=== PATIENT | female | born 1940 | race Caucasian/White ===

== ENCOUNTER 2021-06-08 11:45 | Inpatient (IN) | payer MEDICARE ==
[~2021-06-08] VITALS: Ht 157.5 cm; Wt 88.5 kg
[2021-06-08] MEDS ORDERED: ONDANSETRON HCL INJ 2MG/ML 2ML 2 MG/ML VIAL IV STA (12:11)
[2021-06-08] MEDS ORDERED: MORPHINE SULFATE INJ 4 MG/ML INJ 1ML IV ONE (12:15)
[2021-06-08] MEDS ORDERED: ONDANSETRON HCL INJ 2MG/ML 2ML 2 MG/ML VIAL ONE (12:26)
[2021-06-08] MEDS ORDERED: MORPHINE SULFATE INJ 4 MG/ML INJ 1ML ONE (12:27)
[2021-06-08] MEDS ORDERED: FAMOTIDINE20 MG PO (12:44)
[2021-06-08] MEDS ORDERED: LEVOTHYROXINE112 MCG PO (12:44)
[2021-06-08] MEDS ORDERED: ONDANSETRON ODT4 MG PO (12:44)
[2021-06-08] MEDS ORDERED: LISINOPRIL-HCT1 EACH (12:44)
[2021-06-08] MEDS ORDERED: METOPROLOL SUCC50 MG PO (12:44)
[2021-06-08] MEDS ORDERED: PROMETHAZINE 12.5MG/ NACL 0.9% 12.5 MG/50 ML BAG IV ONE (12:45)
[2021-06-08] MEDS ORDERED: SODIUM CHLORIDE 0.9% 1000ML 1,000 ML IV STA (12:48)
[2021-06-08] MEDS ORDERED: SODIUM CHLORIDE 0.9% 1000ML 1,000 ML ONE (12:59)
[2021-06-08] MEDS ORDERED: SODIUM CHLORIDE 0.9% 50ML 50 ML ONE (12:59)
[2021-06-08] MEDS ORDERED: PROMETHAZINE HCL (IM) 25 MG/ML VIAL IM ONE (12:59)
[2021-06-08] MEDS: SODIUM CHLORIDE 0.9% 1000ML 1,000 ML IV SCH ×2 (13:45→23:31)
[2021-06-08] MEDS ORDERED: ONDANSETRON HCL INJ 2MG/ML 2ML 2 MG/ML VIAL IV PRN (13:45)
[2021-06-08] MEDS ORDERED: FAMOTIDINE 20 MG/2 ML VIAL IV SCH (18:30)
[2021-06-08 18:35] VITALS: BP 139/63
[2021-06-08] MEDS ORDERED: LEVOFLOXACIN 500MG/D5W 100ML 100 ML IV ONE ×2 (18:45→21:00)
[2021-06-08 21:22] VITALS: BP 127/64
[2021-06-08] MEDS: METRONIDAZOLE 500MG/NS 100ML 100 ML IV SCH (23:19)
[2021-06-08] MEDS: FAMOTIDINE 20 MG/2 ML VIAL IV SCH (23:19)
[2021-06-09] VITALS (8 sets, daily range): BP systolic 103–132; BP diastolic 58–67
[2021-06-09] MEDS: SODIUM CHLORIDE 0.9% IRRIG 3,000 ML BAG IR SCH ×8 (03:30→22:00)
[2021-06-09] MEDS: METRONIDAZOLE 500MG/NS 100ML 100 ML IV SCH ×3 (04:58→20:40)
[2021-06-09] MEDS: SODIUM CHLORIDE 0.9% 1000ML 1,000 ML IV SCH ×2 (05:59→08:20)
[2021-06-09 06:13] LABS: BASOPHILS % 0.1 % (0.0-1.0); EOSINOPHILS % 0.1 % (0.0-6.0); HEMATOCRIT 37.4 % (34.2-44.1); HEMOGLOBIN 12.1 g/dL (12.0-16.0); LYMPHOCYTES # (AUTO) 1.2 (1.0-3.2); MEAN CORPUSCULAR HEMOGLOBIN 27.8 pg (28-32); MEAN CORPUSCULAR HGB CONC 32.4 g/dL (31-35); MONOCYTES % 11.8 % (4.4-11.3); NEUTROPHILS # (AUTO) 6.2 (2.1-6.9); NEUTROPHILS % 73.5 % (38.7-80.0); PLATELET COUNT 285 x10e3/uL (140-360); RED BLOOD COUNT 4.35 x10e6/uL (3.6-5.1); RED CELL DISTRIBUTION WIDTH 13.6 % (11.7-14.4)
[2021-06-09 06:51] LABS: INR 1.19; PROTHROMBIN TIME 15.4 seconds (11.9-14.5)
[2021-06-09 06:52] LABS: PARTIAL THROMBOPLASTIN TIME 35.5 seconds (23.8-35.5)
[2021-06-09 06:54] LABS: ALBUMIN 3.7 g/dL (3.5-5.0); ANION GAP 14.9 mmol/L (8-16); BILIRUBIN,DIRECT 0.3 mg/dL (0.0-0.5); CALCIUM 9.8 mg/dL (8.4-10.2); CREATININE, SERUM 1.38 mg/dL (0.57-1.11); MAGNESIUM 2.3 MG/DL (1.3-2.1)
[2021-06-09 07:35] LABS: POTASSIUM 2.9 mmol/L (3.5-5.1)
[2021-06-09] MEDS ORDERED: POTASSIUM CHLORIDE 20MEQ/100ML 300 ML IV ONE (08:15)
[2021-06-09] MEDS: FAMOTIDINE 20 MG/2 ML VIAL IV SCH ×2 (08:19→20:52)
[2021-06-09] MEDS ORDERED: MORPHINE SULFATE INJ 2 MG/ML SYR IV PRN (11:15)
[2021-06-09] MEDS ORDERED: LACTATED RINGER'S 1,000 ML INJ SCH (12:00)
[2021-06-09] MEDS ORDERED: ROCURONIUM BROMIDE 10 MG/ML 5ML VIAL IV ONE (12:39)
[2021-06-09] MEDS ORDERED: NEOSTIGMINE 1 MG/ML 10ML VIAL ONE (12:39)
[2021-06-09] MEDS ORDERED: SEVOFLURANE INHAL SOLN 250 ML PEN BTL ONE (12:39)
[2021-06-09] MEDS ORDERED: DEXAMETHASONE SOD PHOS INJ 4 MG/ML SDV ONE (12:39)
[2021-06-09] MEDS ORDERED: ETOMIDATE 2 MG/ML 10 ML INJ IV ONE (12:39)
[2021-06-09] MEDS ORDERED: ONDANSETRON HCL INJ 2MG/ML 2ML 2 MG/ML VIAL ONE ×2 (12:39→17:37)
[2021-06-09] MEDS ORDERED: ATROPINE SULFATE 1 MG/ML VIAL ONE (12:39)
[2021-06-09] MEDS ORDERED: SUCCINYLCHOLINE CHLORIDE 20 MG/ML 10ML VIAL ONE (12:39)
[2021-06-09] MEDS ORDERED: POVIDONE IODINE 0.05% 0.05 % ML PO ONE (12:39)
[2021-06-09] MEDS: LACTATED RINGER'S 1,000 ML INJ SCH (16:00)
[2021-06-09] MEDS ORDERED: BUPIVACAINE HCL 0.5% INJ 30 ML VIAL INJ ONE (16:51)
[2021-06-09] MEDS ORDERED: FENTANYL CITRATE/PF 100MCG/2 ML INJ ONE (17:37)
[2021-06-09] MEDS ORDERED: LEVOFLOXACIN 500MG/D5W 100ML 100 ML IV SCH (18:00)
[2021-06-09] MEDS ORDERED: MORPHINE SULFATE INJ 4 MG/ML INJ 1ML IV PRN (20:15)
[2021-06-09] MEDS: LEVOFLOXACIN 500MG/D5W 100ML 100 ML IV SCH (21:40)
[2021-06-10] VITALS (8 sets, daily range): BP systolic 105–127; BP diastolic 57–66
[2021-06-10] MEDS: SODIUM CHLORIDE 0.9% IRRIG 3,000 ML BAG IR SCH ×2 (02:03→05:54)
[2021-06-10] MEDS: METRONIDAZOLE 500MG/NS 100ML 100 ML IV SCH ×3 (04:11→20:00)
[2021-06-10 06:44] LABS: BASOPHILS % 0.1 % (0.0-1.0); HEMATOCRIT 41.5 % (34.2-44.1); HEMOGLOBIN 13.1 g/dL (12.0-16.0); LYMPHOCYTES # (AUTO) 0.9 (1.0-3.2); LYMPHOCYTES % 6.4 % (18.0-39.1); MEAN CORPUSCULAR HEMOGLOBIN 27.5 pg (28-32); MEAN CORPUSCULAR HGB CONC 31.6 g/dL (31-35); MONOCYTES # (AUTO) 1.3 (0.2-0.8); MONOCYTES % 9.9 % (4.4-11.3); NEUTROPHILS # (AUTO) 11.2 (2.1-6.9); NEUTROPHILS % 82.9 % (38.7-80.0); PLATELET COUNT 333 x10e3/uL (140-360); RED BLOOD COUNT 4.77 x10e6/uL (3.6-5.1); RED CELL DISTRIBUTION WIDTH 13.5 % (11.7-14.4)
[2021-06-10 07:00] LABS: ANION GAP 13.5 mmol/L (8-16); CALCIUM 9.1 mg/dL (8.4-10.2); CREATININE, SERUM 1.12 mg/dL (0.57-1.11); MAGNESIUM 2.1 MG/DL (1.3-2.1); POTASSIUM 3.5 mmol/L (3.5-5.1)
[2021-06-10] MEDS: FAMOTIDINE 20 MG/2 ML VIAL IV SCH ×2 (09:29→21:00)
[2021-06-10] MEDS ORDERED: POTASSIUM CHLORIDE 20MEQ/100ML 100 ML IV ONE (09:30)
[2021-06-10] MEDS: LACTATED RINGER'S 1,000 ML INJ SCH ×4 (09:38→22:26)
[2021-06-10] MEDS: LEVOFLOXACIN 500MG/D5W 100ML 100 ML IV SCH (21:00)
[2021-06-11] VITALS (8 sets, daily range): BP systolic 116–135; BP diastolic 53–70
[2021-06-11] MEDS: METRONIDAZOLE 500MG/NS 100ML 100 ML IV SCH ×3 (04:00→20:00)
[2021-06-11 07:34] LABS: BASOPHILS % 0.2 % (0.0-1.0); EOSINOPHILS % 0.3 % (0.0-6.0); HEMATOCRIT 35.6 % (34.2-44.1); LYMPHOCYTES # (AUTO) 1.3 (1.0-3.2); LYMPHOCYTES % 10.8 % (18.0-39.1); MEAN CORPUSCULAR HEMOGLOBIN 27.6 pg (28-32); MEAN CORPUSCULAR HGB CONC 30.9 g/dL (31-35); MEAN CORPUSCULAR VOLUME 89.2 fL (81-99); MONOCYTES # (AUTO) 1.1 (0.2-0.8); MONOCYTES % 8.9 % (4.4-11.3); NEUTROPHILS # (AUTO) 9.3 (2.1-6.9); NEUTROPHILS % 78.9 % (38.7-80.0); PLATELET COUNT 278 x10e3/uL (140-360); RED BLOOD COUNT 3.99 x10e6/uL (3.6-5.1); RED CELL DISTRIBUTION WIDTH 13.6 % (11.7-14.4)
[2021-06-11 07:44] LABS: ANION GAP 14.3 mmol/L (8-16); CALCIUM 9.3 mg/dL (8.4-10.2); CREATININE, SERUM 0.9 mg/dL (0.57-1.11); POTASSIUM 3.3 mmol/L (3.5-5.1)
[2021-06-11] MEDS: FAMOTIDINE 20 MG/2 ML VIAL IV SCH ×2 (09:19→20:59)
[2021-06-11] MEDS ORDERED: POTASSIUM CHLORIDE 20MEQ/15ML UDC PO STA (11:39)
[2021-06-11] MEDS ORDERED: POTASSIUM CHLORIDE 10MEQ EA PO NR (13:15)
[2021-06-11] MEDS ORDERED: POTASSIUM CHLORIDE 20MEQ/100ML 200 ML IV ONE (14:30)
[2021-06-11] MEDS: LACTATED RINGER'S 1,000 ML INJ SCH (18:43)
[2021-06-11] MEDS: LEVOFLOXACIN 500MG/D5W 100ML 100 ML IV SCH (20:59)
[2021-06-12] VITALS (8 sets, daily range): BP systolic 113–150; BP diastolic 49–67
[2021-06-12] MEDS: LACTATED RINGER'S 1,000 ML INJ SCH (02:06)
[2021-06-12] MEDS: METRONIDAZOLE 500MG/NS 100ML 100 ML IV SCH ×3 (03:46→21:10)
[2021-06-12 06:09] LABS: BASOPHILS % 0.1 % (0.0-1.0); EOSINOPHILS # (AUTO) 0.1 (0.0-0.4); EOSINOPHILS % 0.8 % (0.0-6.0); HEMATOCRIT 29.4 % (34.2-44.1); HEMOGLOBIN 9.2 g/dL (12.0-16.0); LYMPHOCYTES # (AUTO) 1.5 (1.0-3.2); LYMPHOCYTES % 15.5 % (18.0-39.1); MEAN CORPUSCULAR HEMOGLOBIN 27.8 pg (28-32); MEAN CORPUSCULAR HGB CONC 31.3 g/dL (31-35); MEAN CORPUSCULAR VOLUME 88.8 fL (81-99); MONOCYTES # (AUTO) 0.8 (0.2-0.8); MONOCYTES % 8.1 % (4.4-11.3); NEUTROPHILS # (AUTO) 7.3 (2.1-6.9); NEUTROPHILS % 74.7 % (38.7-80.0); PLATELET COUNT 227 x10e3/uL (140-360); RED BLOOD COUNT 3.31 x10e6/uL (3.6-5.1); RED CELL DISTRIBUTION WIDTH 13.5 % (11.7-14.4)
[2021-06-12 07:02] LABS: ANION GAP 10.4 mmol/L (8-16); CALCIUM 8.2 mg/dL (8.4-10.2); CREATININE, SERUM 0.76 mg/dL (0.57-1.11); MAGNESIUM 1.8 MG/DL (1.3-2.1); POTASSIUM 3.4 mmol/L (3.5-5.1)
[2021-06-12] MEDS: FAMOTIDINE 20 MG/2 ML VIAL IV SCH (09:14)
[2021-06-12] MEDS ORDERED: POTASSIUM CHLORIDE 20MEQ/100ML 100 ML IV ONE (10:30)
[2021-06-12] MEDS ORDERED: SODIUM CHLORIDE 0.9% 250ML 250 ML ONE (12:13)
[2021-06-12] MEDS: LEVOTHYROXINE SODIUM 75 MCG TAB PO SCH (13:05)
[2021-06-12] MEDS ORDERED: KCL 20 MEQ PACKET/ ORAL SOLN NG ONE (14:00)
[2021-06-12] MEDS: LEVOFLOXACIN 500MG/D5W 100ML 100 ML IV SCH (21:55)
[2021-06-13 00:27] VITALS: BP 140/55
[2021-06-13 04:48] VITALS: BP 111/53
[2021-06-13] MEDS: METRONIDAZOLE 500MG/NS 100ML 100 ML IV SCH (05:00)
[2021-06-13] MEDS: LEVOTHYROXINE SODIUM 75 MCG TAB PO SCH (06:06)
[2021-06-13 07:14] VITALS: BP 131/68
[2021-06-13 09:13] VITALS: BP 131/68
[2021-06-13 11:07] VITALS: BP 125/64
== END 2021-06-13 12:46 | disposition home or self-care (01) | DRG 337 ==
LOC: FSED 12:13 → ERHOLD 13:40 → MED/SURG 18:05
PROVIDERS: ADMIT Internal Medicine; ATTEND Internal Medicine
PROC: 0DN80ZZ Release Small Intestine, Open Approach (ICD-10-PCS; 2021-06-09)
PROC: 0WUF07Z Supplement Abdominal Wall with Autologous Tissue Substitute, Open Approach (ICD-10-PCS; principal; 2021-06-09 14:00)
DX: K43.0 Incisional hernia with obstruction, without gangrene (principal); I10 Essential (primary) hypertension; E03.9 Hypothyroidism, unspecified; E87.6 Hypokalemia; I25.10 Atherosclerotic heart disease of native coronary artery without angina pectoris; K21.9 Gastro-esophageal reflux disease without esophagitis; Z90.49 Acquired absence of other specified parts of digestive tract; Z88.0 Allergy status to penicillin; Z91.018 Allergy to other foods; Z82.49 Family history of ischemic heart disease and other diseases of the circulatory system; Z20.822 Contact with and (suspected) exposure to COVID-19
CPT/HCPCS: 36415; 74018; 74176; 80048; 80076; 81003; 82948; 83690; 83735; 84443; 85025; 85610; 85730; 96374; 99284; J0330; J0461; J0690; J1100; J1956; J2270; J2405; J2550; J2710; J3010; J3480; J7030; J7050; J7121; U0002

== ENCOUNTER 2021-10-31 21:06 | Inpatient (IN) | payer MEDICARE ==
[~2021-10-31] VITALS: Ht 157.5 cm; Wt 88.5 kg
[~2021-10-31 21:06] MED LIST: CEFTRIAXONE 1 GM VIAL ONE; FAMOTIDINE20 MG PO; LEVOTHYROXINE112 MCG PO; LISINOPRIL-HCT1 EACH; METOPROLOL SUCC50 MG PO; ONDANSETRON ODT4 MG PO
[2021-10-31] MEDS ORDERED: ONDANSETRON HCL INJ 2MG/ML 2ML 2 MG/ML VIAL IV STA (21:18)
[2021-10-31 21:25] LABS: BASOPHILS % 0.3 % (0.0-1.0); EOSINOPHILS % 0.2 % (0.0-6.0); HEMATOCRIT 42.9 % (34.2-44.1); HEMOGLOBIN 13.6 g/dL (12.0-16.0); LYMPHOCYTES # (AUTO) 1.1 (1.0-3.2); LYMPHOCYTES % 7.2 % (18.0-39.1); MEAN CORPUSCULAR HEMOGLOBIN 26.8 pg (28-32); MEAN CORPUSCULAR HGB CONC 31.7 g/dL (31-35); MEAN CORPUSCULAR VOLUME 84.6 fL (81-99); MONOCYTES # (AUTO) 0.5 (0.2-0.8); MONOCYTES % 3.4 % (4.4-11.3); NEUTROPHILS # (AUTO) 13.5 (2.1-6.9); NEUTROPHILS % 88.3 % (38.7-80.0); PLATELET COUNT 323 x10e3/uL (140-360); RED BLOOD COUNT 5.07 x10e6/uL (3.6-5.1); RED CELL DISTRIBUTION WIDTH 14.6 % (11.7-14.4)
[2021-10-31] MEDS ORDERED: SODIUM CHLORIDE 0.9% 1000ML 1,000 ML IV ONE (21:30)
[2021-10-31] MEDS ORDERED: Morphine 2mg Syringe 2 MG/ML SYR IV ONE (21:30)
[2021-10-31] MEDS ORDERED: ONDANSETRON HCL INJ 2MG/ML 2ML 2 MG/ML VIAL ONE (21:34)
[2021-10-31 21:40] LABS: AMYLASE 50 U/L (25-125); LIPASE 20 U/L (8-78)
[2021-10-31 21:43] LABS: ALBUMIN 4.4 g/dL (3.5-5.0); ANION GAP 17.8 mmol/L (8-16); CALCIUM 11.9 mg/dL (8.4-10.2); CREATININE, SERUM 1.01 mg/dL (0.57-1.11); POTASSIUM 3.8 mmol/L (3.5-5.1)
[2021-10-31] MEDS ORDERED: CEFEPIME 1 GM in SODIUM CHLORIDE 0.9% 50ML 50 ML IV ONE (21:45)
[2021-10-31 21:48] LABS: CLARITY,URINE CLOUDY (CLEAR); COLOR,URINE YELLOW (YELLOW); KETONES,URINE TRACE (NEGATIVE); LEUKOCYTE ESTERASE ,URINE SMALL (NEGATIVE); NITRITE,URINE NEGATIVE (NEGATIVE); PROTEIN,URINE DIPSTICK 2+ (NEGATIVE); URINE UROBILINOGEN 0.2 mg/dL (0.2 - 1)
[2021-10-31 21:49] LABS: CREATINE KINASE MB 2.3 ng/mL (0-5.0)
[2021-10-31 21:58] LABS: BACTERIA,URINE MANY /HPF; EPITHELIAL CELLS,URINE FEW /LPF; RBC,URINE 0-5 /HPF (0-5); WBC,URINE (MAN) 0-5 /HPF (0-5)
[2021-10-31] MEDS ORDERED: IOPAMIDOL 370 MG/ML 200 ML INFUS..BTL INJ ONE (22:11)
[2021-10-31] MEDS ORDERED: SODIUM CHLORIDE 0.9% 50ML 50 ML ONE (22:11)
[2021-11-01] VITALS (9 sets, daily range): BP systolic 136–149; BP diastolic 56–73
[2021-11-01] MEDS ORDERED: Morphine 4mg Syringe 4 MG/ML INJ IV PRN
[2021-11-01] MEDS: SODIUM CHLORIDE 0.9% 1000ML 1,000 ML IV SCH ×3 (01:00→16:17)
[2021-11-01] MEDS: ONDANSETRON HCL INJ 2MG/ML 2ML 2 MG/ML VIAL IV PRN ×2 (01:20→07:32)
[2021-11-01] MEDS: CEFEPIME 1 GM in SODIUM CHLORIDE 0.9% 50ML 50 ML IV SCH ×2 (06:00→13:09)
[2021-11-01 08:18] LABS: BASOPHILS % 0.1 % (0.0-1.0); HEMATOCRIT 41.4 % (34.2-44.1); LYMPHOCYTES # (AUTO) 0.5 (1.0-3.2); LYMPHOCYTES % 4.9 % (18.0-39.1); MEAN CORPUSCULAR HEMOGLOBIN 26.9 pg (28-32); MEAN CORPUSCULAR HGB CONC 31.4 g/dL (31-35); MEAN CORPUSCULAR VOLUME 85.5 fL (81-99); MONOCYTES # (AUTO) 0.7 (0.2-0.8); MONOCYTES % 6.3 % (4.4-11.3); NEUTROPHILS # (AUTO) 9.7 (2.1-6.9); NEUTROPHILS % 88.4 % (38.7-80.0); PLATELET COUNT 289 x10e3/uL (140-360); RED BLOOD COUNT 4.84 x10e6/uL (3.6-5.1); RED CELL DISTRIBUTION WIDTH 14.6 % (11.7-14.4)
[2021-11-01 08:35] LABS: ANION GAP 14.8 mmol/L (8-16); CALCIUM 10.6 mg/dL (8.4-10.2); CREATININE, SERUM 0.9 mg/dL (0.57-1.11); POTASSIUM 3.8 mmol/L (3.5-5.1)
[2021-11-01] MEDS: FAMOTIDINE 20 MG/2 ML VIAL IV SCH (16:17)
[2021-11-01] MEDS: LACTATED RINGER'S 1,000 ML INJ SCH (18:20)
[2021-11-02] VITALS (7 sets, daily range): BP systolic 134–160; BP diastolic 53–68
[2021-11-02 06:09] LABS: INR 1.08; PARTIAL THROMBOPLASTIN TIME 30.9 seconds (23.8-35.5); PROTHROMBIN TIME 14.8 seconds (11.9-14.5)
[2021-11-02 06:15] LABS: ANION GAP 15.8 mmol/L (8-16); CALCIUM 10.5 mg/dL (8.4-10.2); MAGNESIUM 2.3 MG/DL (1.3-2.1); POTASSIUM 3.8 mmol/L (3.5-5.1)
[2021-11-02 06:42] LABS: CREATININE, SERUM 0.88 mg/dL (0.57-1.11)
[2021-11-02] MEDS: LACTATED RINGER'S 1,000 ML INJ SCH ×2 (07:33→17:54)
[2021-11-02 07:54] LABS: BASOPHILS % 0.3 % (0.0-1.0); EOSINOPHILS % 0.4 % (0.0-6.0); HEMATOCRIT 38.2 % (34.2-44.1); HEMOGLOBIN 11.7 g/dL (12.0-16.0); LYMPHOCYTES # (AUTO) 1.1 (1.0-3.2); LYMPHOCYTES % 16.5 % (18.0-39.1); MEAN CORPUSCULAR HEMOGLOBIN 26.7 pg (28-32); MEAN CORPUSCULAR HGB CONC 30.6 g/dL (31-35); MONOCYTES # (AUTO) 0.8 (0.2-0.8); MONOCYTES % 11.3 % (4.4-11.3); NEUTROPHILS # (AUTO) 4.8 (2.1-6.9); NEUTROPHILS % 71.1 % (38.7-80.0); PLATELET COUNT 279 x10e3/uL (140-360); RED BLOOD COUNT 4.39 x10e6/uL (3.6-5.1); RED CELL DISTRIBUTION WIDTH 14.6 % (11.7-14.4)
[2021-11-02] MEDS: FAMOTIDINE 20 MG/2 ML VIAL IV SCH ×2 (09:23→17:15)
[2021-11-02] MEDS: METOPROLOL TARTRATE INJ 1 MG/ML VIAL IV SCH ×2 (13:21→18:15)
[2021-11-02] MEDS ORDERED: Vancomycin IV 1 GM in SODIUM CHLORIDE 0.9% 250ML 250 ML IV ONE (20:00)
[2021-11-03] VITALS: BP 140/62
[2021-11-03] MEDS: LACTATED RINGER'S 1,000 ML INJ SCH ×3 (00:58→15:02)
[2021-11-03] MEDS: METOPROLOL TARTRATE INJ 1 MG/ML VIAL IV SCH ×3 (01:19→17:28)
[2021-11-03 04:00] VITALS: BP 153/61
[2021-11-03 05:45] LABS: BASOPHILS % 0.2 % (0.0-1.0); EOSINOPHILS # (AUTO) 0.1 (0.0-0.4); EOSINOPHILS % 0.9 % (0.0-6.0); HEMATOCRIT 37.8 % (34.2-44.1); HEMOGLOBIN 11.5 g/dL (12.0-16.0); LYMPHOCYTES # (AUTO) 1.8 (1.0-3.2); LYMPHOCYTES % 22.7 % (18.0-39.1); MEAN CORPUSCULAR HEMOGLOBIN 26.7 pg (28-32); MEAN CORPUSCULAR HGB CONC 30.4 g/dL (31-35); MEAN CORPUSCULAR VOLUME 87.9 fL (81-99); MONOCYTES # (AUTO) 0.8 (0.2-0.8); NEUTROPHILS # (AUTO) 5.3 (2.1-6.9); NEUTROPHILS % 65.7 % (38.7-80.0); PLATELET COUNT 255 x10e3/uL (140-360); RED CELL DISTRIBUTION WIDTH 14.6 % (11.7-14.4)
[2021-11-03 06:09] LABS: ANION GAP 13.7 mmol/L (8-16); CALCIUM 9.9 mg/dL (8.4-10.2); CREATININE, SERUM 0.76 mg/dL (0.57-1.11); POTASSIUM 3.7 mmol/L (3.5-5.1)
[2021-11-03 06:28] LABS: % IRON SATURATION 15 % (15-50); IRON 41 ug/dL (50-170); TOTAL IRON BINDING CAPACITY 272 ug/dL (261-478); TRANSFERRIN 194 mg/dL (180-382)
[2021-11-03 07:57] VITALS: BP 133/64
[2021-11-03] MEDS: FAMOTIDINE 20 MG/2 ML VIAL IV SCH ×2 (09:23→17:28)
[2021-11-03] MEDS: CEFTRIAXONE 1 GM in SODIUM CHLORIDE 0.9% 50ML 50 ML IV SCH (11:48)
[2021-11-03 11:56] VITALS: BP 157/59
[2021-11-03] MEDS ORDERED: METOPROLOL TARTRATE INJ 1 MG/ML VIAL IV PRN (12:45)
[2021-11-03 16:19] VITALS: BP 152/56
[2021-11-03 20:00] VITALS: BP 164/60
[2021-11-04] VITALS (7 sets, daily range): BP systolic 139–157; BP diastolic 47–65
[2021-11-04] MEDS: METOPROLOL TARTRATE INJ 1 MG/ML VIAL IV SCH ×4 (01:15→18:16)
[2021-11-04] MEDS ORDERED: HEPARIN SOD/SOD CHLORIDE 1,000 ML ONE (06:19)
[2021-11-04] MEDS ORDERED: MANNITOL 25% 12.5GM/50ML 0 ML ONE (06:46)
[2021-11-04] MEDS: FAMOTIDINE 20 MG/2 ML VIAL IV SCH ×2 (09:00→16:34)
[2021-11-04] MEDS: CEFTRIAXONE 1 GM in SODIUM CHLORIDE 0.9% 50ML 50 ML IV SCH (09:00)
[2021-11-04] MEDS ORDERED: ACETAMINOPHEN 1000 MG/100 ML 100 ML IV ONE (10:26)
[2021-11-04] MEDS ORDERED: FENTANYL CITRATE/PF 100MCG/2 ML INJ ONE ×2 (11:50→11:57)
[2021-11-04] MEDS ORDERED: Morphine 10mg syringe 10 MG/ML INJ ONE (11:57)
[2021-11-04] MEDS ORDERED: MIDAZOLAM HCL 2 MG/2 ML VIAL ONE (11:57)
[2021-11-04] MEDS: SODIUM CHLORIDE 0.9% 250ML IRRIG IR SCH ×4 (12:37→21:13)
[2021-11-04] MEDS ORDERED: HYDRALAZINE HCL 20 MG/ML VIAL IV PRN (13:15)
[2021-11-04] MEDS: Morphine 4mg Syringe 4 MG/ML INJ IV PRN ×3 (13:27→20:51)
[2021-11-04] MEDS: ONDANSETRON HCL INJ 2MG/ML 2ML 2 MG/ML VIAL IV PRN (13:28)
[2021-11-04] MEDS ORDERED: NEOSTIGMINE 1 MG/ML 10ML VIAL ONE (13:56)
[2021-11-04] MEDS ORDERED: POVIDONE IODINE 0.05% 0.05 % ML PO ONE (13:56)
[2021-11-04] MEDS ORDERED: ROCURONIUM BROMIDE 10 MG/ML 5ML VIAL IV ONE (13:56)
[2021-11-04] MEDS ORDERED: DEXAMETHASONE SOD PHOS INJ 4 MG/ML SDV ONE (13:56)
[2021-11-04] MEDS ORDERED: SEVOFLURANE INHAL SOLN 250 ML PEN BTL ONE (13:56)
[2021-11-04] MEDS ORDERED: ATROPINE SULFATE 1 MG/ML VIAL ONE (13:56)
[2021-11-04] MEDS ORDERED: ONDANSETRON HCL INJ 2MG/ML 2ML 2 MG/ML VIAL ONE (13:56)
[2021-11-04] MEDS ORDERED: PROPOFOL IV EMULSION 10 MG/ML 20 ML VIAL ONE (13:56)
[2021-11-04] MEDS ORDERED: LIDOCAINE HCL 2% LOCAL INJ 5 ML SDV VIAL INJ ONE (13:56)
[2021-11-04] MEDS ORDERED: SUCCINYLCHOLINE CHLORIDE 20 MG/ML 10ML VIAL ONE (13:56)
[2021-11-04] MEDS: LACTATED RINGER'S 1,000 ML INJ SCH ×2 (17:03→19:42)
[2021-11-05] VITALS (7 sets, daily range): BP systolic 138–149; BP diastolic 54–89
[2021-11-05] MEDS: METOPROLOL TARTRATE INJ 1 MG/ML VIAL IV SCH ×4 (00:16→18:05)
[2021-11-05] MEDS: SODIUM CHLORIDE 0.9% 250ML IRRIG IR SCH ×8 (02:51→22:45)
[2021-11-05] MEDS: LACTATED RINGER'S 1,000 ML INJ SCH ×3 (02:51→22:54)
[2021-11-05 06:02] LABS: BASOPHILS % 0.2 % (0.0-1.0); EOSINOPHILS % 0.1 % (0.0-6.0); HEMATOCRIT 32.7 % (34.2-44.1); HEMOGLOBIN 10.1 g/dL (12.0-16.0); LYMPHOCYTES # (AUTO) 1.1 (1.0-3.2); LYMPHOCYTES % 9.1 % (18.0-39.1); MEAN CORPUSCULAR HEMOGLOBIN 26.7 pg (28-32); MEAN CORPUSCULAR HGB CONC 30.9 g/dL (31-35); MEAN CORPUSCULAR VOLUME 86.5 fL (81-99); MONOCYTES # (AUTO) 1.1 (0.2-0.8); MONOCYTES % 9.2 % (4.4-11.3); NEUTROPHILS # (AUTO) 9.7 (2.1-6.9); NEUTROPHILS % 80.7 % (38.7-80.0); PLATELET COUNT 256 x10e3/uL (140-360); RED BLOOD COUNT 3.78 x10e6/uL (3.6-5.1); RED CELL DISTRIBUTION WIDTH 14.3 % (11.7-14.4)
[2021-11-05 06:12] LABS: ANION GAP 12.9 mmol/L (8-16); CALCIUM 8.7 mg/dL (8.4-10.2); CREATININE, SERUM 1.02 mg/dL (0.57-1.11); POTASSIUM 3.9 mmol/L (3.5-5.1)
[2021-11-05] MEDS: CEFTRIAXONE 1 GM in SODIUM CHLORIDE 0.9% 50ML 50 ML IV SCH (09:11)
[2021-11-05] MEDS: FAMOTIDINE 20 MG/2 ML VIAL IV SCH ×2 (09:11→16:35)
[2021-11-05] MEDS: Morphine 4mg Syringe 4 MG/ML INJ IV PRN (15:36)
[2021-11-06] VITALS (7 sets, daily range): BP systolic 124–164; BP diastolic 50–61
[2021-11-06] MEDS: METOPROLOL TARTRATE INJ 1 MG/ML VIAL IV SCH ×4 (01:23→17:24)
[2021-11-06] MEDS: LACTATED RINGER'S 1,000 ML INJ SCH ×3 (01:42→22:50)
[2021-11-06] MEDS: SODIUM CHLORIDE 0.9% 250ML IRRIG IR SCH ×3 (02:45→10:56)
[2021-11-06] MEDS: Morphine 4mg Syringe 4 MG/ML INJ IV PRN (03:56)
[2021-11-06 05:40] LABS: BASOPHILS % 0.2 % (0.0-1.0); EOSINOPHILS # (AUTO) 0.1 (0.0-0.4); EOSINOPHILS % 0.6 % (0.0-6.0); HEMATOCRIT 28.4 % (34.2-44.1); HEMOGLOBIN 8.5 g/dL (12.0-16.0); LYMPHOCYTES # (AUTO) 1.3 (1.0-3.2); LYMPHOCYTES % 11.1 % (18.0-39.1); MEAN CORPUSCULAR HEMOGLOBIN 26.7 pg (28-32); MEAN CORPUSCULAR HGB CONC 29.9 g/dL (31-35); MEAN CORPUSCULAR VOLUME 89.3 fL (81-99); MONOCYTES % 8.4 % (4.4-11.3); NEUTROPHILS # (AUTO) 9.4 (2.1-6.9); PLATELET COUNT 215 x10e3/uL (140-360); RED BLOOD COUNT 3.18 x10e6/uL (3.6-5.1); RED CELL DISTRIBUTION WIDTH 14.4 % (11.7-14.4)
[2021-11-06 06:13] LABS: ALBUMIN 2.5 g/dL (3.5-5.0); ANION GAP 13.4 mmol/L (8-16); BILIRUBIN,DIRECT 0.3 mg/dL (0.0-0.5); CALCIUM 8.4 mg/dL (8.4-10.2); CREATININE, SERUM 0.89 mg/dL (0.57-1.11); POTASSIUM 3.4 mmol/L (3.5-5.1)
[2021-11-06] MEDS: CEFTRIAXONE 1 GM in SODIUM CHLORIDE 0.9% 50ML 50 ML IV SCH (08:35)
[2021-11-06] MEDS: FAMOTIDINE 20 MG/2 ML VIAL IV SCH ×2 (08:35→17:23)
[2021-11-06] MEDS ORDERED: POTASSIUM CHLORIDE 20MEQ/100ML 100 ML IV ONE (10:15)
[2021-11-06] MEDS ORDERED: POTASSIUM CHLORIDE 10MEQ/100ML 200 ML IV ONE (10:45)
[2021-11-06] MEDS ORDERED: BISACODYL 10 MG SUPP PR PRN (11:45)
[2021-11-06] MEDS: KETOROLAC TROMETHAMINE 30 MG/ML VIAL IV PRN ×2 (12:15→22:50)
[2021-11-06] MEDS: IRON SUCROSE 100 MG in SODIUM CHLORIDE 0.9% 100 ML 100 ML IV SCH (12:55)
[2021-11-06] MEDS ORDERED: BISACODYL 10 MG SUPP PR ONE (17:00)
[2021-11-07] VITALS (8 sets, daily range): BP systolic 136–142; BP diastolic 51–76
[2021-11-07] MEDS: METOPROLOL TARTRATE INJ 1 MG/ML VIAL IV SCH ×5 (00:42→23:49)
[2021-11-07 05:28] LABS: BASOPHILS % 0.3 % (0.0-1.0); EOSINOPHILS # (AUTO) 0.2 (0.0-0.4); EOSINOPHILS % 1.5 % (0.0-6.0); HEMATOCRIT 28.4 % (34.2-44.1); HEMOGLOBIN 8.2 g/dL (12.0-16.0); LYMPHOCYTES # (AUTO) 1.4 (1.0-3.2); LYMPHOCYTES % 13.6 % (18.0-39.1); MEAN CORPUSCULAR HEMOGLOBIN 26.5 pg (28-32); MEAN CORPUSCULAR HGB CONC 28.9 g/dL (31-35); MEAN CORPUSCULAR VOLUME 91.6 fL (81-99); MONOCYTES # (AUTO) 0.6 (0.2-0.8); MONOCYTES % 6.1 % (4.4-11.3); NEUTROPHILS % 77.7 % (38.7-80.0); PLATELET COUNT 209 x10e3/uL (140-360); RED CELL DISTRIBUTION WIDTH 14.4 % (11.7-14.4)
[2021-11-07 05:56] LABS: ANION GAP 14.5 mmol/L (8-16); CALCIUM 8.4 mg/dL (8.4-10.2); CREATININE, SERUM 0.85 mg/dL (0.57-1.11); MAGNESIUM 2.1 MG/DL (1.3-2.1); POTASSIUM 3.5 mmol/L (3.5-5.1)
[2021-11-07] MEDS ORDERED: BISACODYL 10 MG SUPP PR PRN (08:45)
[2021-11-07] MEDS ORDERED: FUROSEMIDE INJ 10 MG/ML 4 ML VIAL IV ONE (09:00)
[2021-11-07] MEDS: CEFTRIAXONE 1 GM in SODIUM CHLORIDE 0.9% 50ML 50 ML IV SCH (10:13)
[2021-11-07] MEDS: DOCUSATE SODIUM 100 MG CAP PO SCH ×2 (10:13→17:45)
[2021-11-07] MEDS: FAMOTIDINE 20 MG/2 ML VIAL IV SCH (10:13)
[2021-11-07] MEDS: IRON SUCROSE 100 MG in SODIUM CHLORIDE 0.9% 100 ML 100 ML IV SCH (12:49)
[2021-11-07] MEDS: KETOROLAC TROMETHAMINE 30 MG/ML VIAL IV PRN (20:24)
[2021-11-08] VITALS (7 sets, daily range): BP systolic 131–162; BP diastolic 51–68
[2021-11-08] MEDS: METOPROLOL TARTRATE INJ 1 MG/ML VIAL IV SCH ×3 (05:19→17:46)
[2021-11-08] MEDS: LACTATED RINGER'S 1,000 ML INJ SCH (05:29)
[2021-11-08] MEDS: LEVOTHYROXINE SODIUM 75 MCG TAB PO SCH (05:29)
[2021-11-08 05:58] LABS: BASOPHILS % 0.5 % (0.0-1.0); EOSINOPHILS # (AUTO) 0.3 (0.0-0.4); EOSINOPHILS % 2.9 % (0.0-6.0); HEMATOCRIT 31.1 % (34.2-44.1); HEMOGLOBIN 9.6 g/dL (12.0-16.0); LYMPHOCYTES # (AUTO) 2.2 (1.0-3.2); LYMPHOCYTES % 25.1 % (18.0-39.1); MEAN CORPUSCULAR HEMOGLOBIN 26.6 pg (28-32); MEAN CORPUSCULAR HGB CONC 30.9 g/dL (31-35); MEAN CORPUSCULAR VOLUME 86.1 fL (81-99); MONOCYTES # (AUTO) 0.6 (0.2-0.8); MONOCYTES % 6.4 % (4.4-11.3); NEUTROPHILS # (AUTO) 5.5 (2.1-6.9); PLATELET COUNT 314 x10e3/uL (140-360); RED BLOOD COUNT 3.61 x10e6/uL (3.6-5.1); RED CELL DISTRIBUTION WIDTH 14.3 % (11.7-14.4)
[2021-11-08] MEDS ORDERED: LEVOTHYROXINE SODIUM 75 MCG TAB PO SCH (06:00)
[2021-11-08 06:38] LABS: ANION GAP 17.2 mmol/L (8-16); CALCIUM 8.8 mg/dL (8.4-10.2); CREATININE, SERUM 0.97 mg/dL (0.57-1.11); POTASSIUM 3.2 mmol/L (3.5-5.1)
[2021-11-08] MEDS ORDERED: POTASSIUM CHLORIDE 20 MEQ TAB CR PO ONE (09:30)
[2021-11-08] MEDS: CEFTRIAXONE 1 GM in SODIUM CHLORIDE 0.9% 50ML 50 ML IV SCH (10:20)
[2021-11-08] MEDS: DOCUSATE SODIUM 100 MG CAP PO SCH ×2 (10:20→17:46)
[2021-11-08] MEDS: KETOROLAC TROMETHAMINE 30 MG/ML VIAL IV PRN (10:35)
[2021-11-08] MEDS: IRON SUCROSE 100 MG in SODIUM CHLORIDE 0.9% 100 ML 100 ML IV SCH (12:30)
[2021-11-08] MEDS ORDERED: ACETAMINOPHEN/CODEINE 300MG - 30MG TAB PO PRN (14:00)
[2021-11-09] VITALS: BP 149/58
[2021-11-09 04:00] VITALS: BP 147/57
[2021-11-09] MEDS: LEVOTHYROXINE SODIUM 75 MCG TAB PO SCH (05:02)
[2021-11-09] MEDS: METOPROLOL TARTRATE INJ 1 MG/ML VIAL IV SCH ×3 (05:41→12:00)
[2021-11-09 08:00] VITALS: BP 148/63
[2021-11-09] MEDS ORDERED: ONDANSETRON HCL 4 MG ORAL DISINTEGRATING TAB PO PRN (08:15)
[2021-11-09] MEDS ORDERED: FAMOTIDINE 20 MG TAB PO SCH (09:00)
[2021-11-09 09:06] VITALS: BP 148/63
[2021-11-09] MEDS ORDERED: BISACODYL 10 MG SUPP PR ONE (09:30)
[2021-11-09] MEDS: DOCUSATE SODIUM 100 MG CAP PO SCH ×2 (09:45→17:14)
[2021-11-09] MEDS: CEFTRIAXONE 1 GM in SODIUM CHLORIDE 0.9% 50ML 50 ML IV SCH (09:45)
[2021-11-09 12:00] VITALS: BP 153/76
[2021-11-09] MEDS ORDERED: ULTRAM50 MG PO (13:02)
[2021-11-09 16:00] VITALS: BP 148/73
== END 2021-11-09 18:05 | disposition home or self-care (01) | DRG 354 ==
LOC: ER 21:15 → ERHOLD 23:50 → MED/SURG 11-01 00:39
PROVIDERS: ADMIT Internal Medicine; ATTEND Internal Medicine
PROC: 3E03329 Introduction of Other Anti-infective into Peripheral Vein, Percutaneous Approach (ICD-10-PCS; 2021-10-31)
PROC: 0D9670Z Drainage of Stomach with Drainage Device, Via Natural or Artificial Opening (ICD-10-PCS; principal; 2021-11-01)
PROC: 0TT10ZZ Resection of Left Kidney, Open Approach (ICD-10-PCS; 2021-11-04)
PROC: 0TT70ZZ Resection of Left Ureter, Open Approach (ICD-10-PCS; 2021-11-04)
PROC: 0WQF0ZZ Repair Abdominal Wall, Open Approach (ICD-10-PCS; 2021-11-04 07:00)
DX: K43.0 Incisional hernia with obstruction, without gangrene (principal); C64.2 Malignant neoplasm of left kidney, except renal pelvis; N39.0 Urinary tract infection, site not specified; D62 Acute posthemorrhagic anemia; K56.50 Intestinal adhesions [bands], unspecified as to partial versus complete obstruction; I10 Essential (primary) hypertension; E03.9 Hypothyroidism, unspecified; I25.10 Atherosclerotic heart disease of native coronary artery without angina pectoris; K21.9 Gastro-esophageal reflux disease without esophagitis; Z90.49 Acquired absence of other specified parts of digestive tract; Z88.0 Allergy status to penicillin; Z91.018 Allergy to other foods; N28.1 Cyst of kidney, acquired; E66.9 Obesity, unspecified; N39.46 Mixed incontinence; B96.1 Klebsiella pneumoniae [K. pneumoniae] as the cause of diseases classified elsewhere; N81.6 Rectocele; N95.2 Postmenopausal atrophic vaginitis; Z68.35 Body mass index [BMI] 35.0-35.9, adult
CPT/HCPCS: 36415; 71045; 71046; 74018; 74019; 74177; 80048; 80053; 80076; 81001; 82150; 82550; 82553; 83540; 83605; 83690; 83735; 83970; 84443; 84466; 84484; 85025; 85610; 85730; 86850; 86900; 86920; 87040; 87071; 87086; 87186; 87205; 88304; 88307; 88342; 93005; 93306; 94799; 97139; 99284; J0330; J0461; J0692; J0696; J1100; J1756; J1885; J1940; J2001; J2150; J2250; J2270; J2405; J2710; J3010; J3370; J3480; J7030; J7050; J7121; Q9967; U0002